=== PATIENT | female | born 1985 | race Caucasian/White ===

== ENCOUNTER 2016-07-19 14:44 | Outpatient (CLI) | payer MEDICAID ==
[~2016-07-19] VITALS: Ht 149.9 cm; Wt 58.1 kg
[2016-07-19 14:52] VITALS: BP 114/59; PULSE 91; RESP 19; Ht 149.9 cm; Wt 58.1 kg
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
== END 2016-07-19 18:40 | disposition home or self-care (01) ==
LOC: OBT 14:44 → L-D 14:45 → OBT 18:40
PROVIDERS: ATTEND Obstetrics & Gynecology
DX: O47.02 False labor before 37 completed weeks of gestation, second trimester (principal); Z3A.22 22 weeks gestation of pregnancy
CPT/HCPCS: 76815; 85460; Z7500; G0463

== ENCOUNTER 2017-07-16 02:12 | Emergency (ER) | END 2017-07-16 07:15 | disposition home or self-care (01) ==